=== PATIENT | male | born 1985 | race Caucasian/White ===

== ENCOUNTER → 2020-01-21 | Outpatient (CLI) | payer BC ==
[~2020-01-21] MED LIST: LISINOPRIL5 MG PO
--- NOTE | 2020-01-21 11:30 | NUR ---
INFORMED SIGNED CONSENT OBTAINED FOR STANDARD GXT WITH DR TUCKER. RESTING EKG HR 61 NSR, BP 130/78 IN SUPINE POSITION, STANDING HR 67 BP 136/80. PT COMPLETED 14:00 MINUTES OF A ANUJ PROTOCOL WITH PT COMPLETING 2 MINS OF STAGE V AT 5.0 AND AN 18% GRADE. PT REACHED A PEAK HR OF 161 WHICH REPRESENTS 86% OF PREDICTED MAXIMUM AND A PEAK BP OF 180/58. NO ARRHYTHMNIAS OR ST CHANGES NOTED. TEST TERMINATED DUE TO FATIGUE AND SOB, PT DENIES CHEST PAIN. LAST RECOVERY HR OF 84 BP 140/70. PT IN STABLE CONDITION HOME TO SELF.
== END | disposition home or self-care (01) ==
LOC: RAD 09:05
PROVIDERS: ATTEND Nurse Practitioner Family
DX: R07.9 Chest pain, unspecified (principal); I10 Essential (primary) hypertension; Z82.49 Family history of ischemic heart disease and other diseases of the circulatory system

== ENCOUNTER → 2020-01-21 | Outpatient (CLI) | payer BC | END | disposition home or self-care (01) | LOC: CARD 00:38 | PROVIDERS: ATTEND Nurse Practitioner Family | DX: R07.9 Chest pain, unspecified (principal); I10 Essential (primary) hypertension; Z82.49 Family history of ischemic heart disease and other diseases of the circulatory system ==

== ENCOUNTER → 2021-08-25 | Outpatient (CLI) | payer BC | END | disposition home or self-care (01) | LOC: RAD 16:03 | PROVIDERS: ATTEND Nurse Practitioner Family | DX: R06.02 Shortness of breath (principal); R05.9 Cough, unspecified; R06.2 Wheezing ==

== ENCOUNTER → 2021-10-06 | Outpatient (CLI) | payer BC | LOC: RAD 14:22 | PROVIDERS: ATTEND Nurse Practitioner Family | DX: R05.9 Cough, unspecified (principal); R06.2 Wheezing ==